=== PATIENT | female | born 1970 | race Caucasian/White ===

== ENCOUNTER 2017-08-27 23:43 | Emergency (ER) | payer BC, OTHER ==
[~2017-08-27] VITALS: Ht 172.7 cm; Wt 90.0 kg
[~2017-08-27 23:43] MED LIST: LORT5TAB PO
[2017-08-27 23:58] VITALS: BP 132/85; PULSE 126; RESP 18; TEMP 97.4; O2SAT 96
[2017-08-28] MEDS ORDERED: ALPR.5 PO (00:01)
--- NOTE | 2017-08-28 00:14 | PD ---
HPI Chief Complaint: Psychiatric Symptoms Time Seen by Provider: 00:05 Travel History International Travel<30 days: No Contact w/Intl Traveler<30days: No Traveled to known affect area: No History of Present Illness HPI 47 year white female who presents to emergency department by EMS for evaluation of overdose under Campos act. Patient has consumed a large amount of alcohol "a glasses of wine" and taking 12-15 0.5 mg Xanax. The patient here is alert but uncooperative. She does appear to be under the influence. Speech is slurred. She is handling her secretions. She is maintaining her sats. Vital signs are stable. The patient will not answer questions at this time. According the Campos act the patient was feeling depressed and suicidal. She had stated that she has not been able see her grandkids. No wounds visiting. PFSH Past Medical History Anxiety: Yes Diminished Hearing: No Gastrointestinal Disorders: Yes (ABD PAIN) Tetanus Vaccination: Unknown ?: Not Past Surgical History Gynecologic Surgery: Yes (BREAST AUGMENTATION/ UTERINE ABLATION) Other Surgery: Yes (NASAL SURGERY) Social History Alcohol Use: Yes (2 GLASSES OF WINE A WEEK) Tobacco Use: Yes (1/2 PPD) Substance Use: No Allergies-Medications (Allergen,Severity, Reaction): Coded Allergies: No Known Allergies (Verified Adverse Reaction, Unknown, 08/28/17) Reported Meds & Prescriptions Reported Meds & Active Scripts Active Reported Xanax (Alprazolam) 0.5 Mg Tab 0.5 Mg PO Q8H PRN Review of Systems ROS Limitations: Intoxication, Uncooperative Physical Exam Narrative GENERAL: Well-nourished, well-developed patient. Patient is uncooperative. Positive gag reflex. SKIN: Warm and dry. HEAD: Normocephalic and atraumatic. EYES: No scleral icterus. No injection or drainage. ENT: No nasal drainage noted. Mucous membranes pink. Airway patent. NECK: Supple, trachea midline. Moves head freely without obvious discomfort. CARDIOVASCULAR: Regular rate and rhythm without murmurs, gallops, or rubs. RESPIRATORY: Breath sounds equal bilaterally. No accessory muscle use. GASTROINTESTINAL: Abdomen soft, non-tender, nondistended. EXTREMITIES: No cyanosis or edema. BACK: Nontender without obvious deformity. No CVA tenderness. NEURO: Patient is alert and oriented. no sensorimotor deficits. Nonfocal. Slurred speech. PSYCH: No delusions. No auditory or visual hallucinations. Data Data Last Documented VS Vital Signs Date Time Temp Pulse Resp B/P (MAP) Pulse Ox O2 Delivery O2 Flow Rate FiO2 08/27/17 23:58 97.4 126 18 132/85 (101) 96 Orders Orders Complete Blood Count With Diff (08/28/17 00:05) Comprehensive Metabolic Panel (08/28/17 00:05) Iv Access Insert/Monitor (08/28/17 00:05) Ecg Monitoring (08/28/17 00:05) Psych Screen (08/28/17 00:05) Drug Screen, Random Urine (08/28/17 00:05) Alcohol (Ethanol) (08/28/17 00:05) Salicylates (Aspirin) (08/28/17 00:05) Tylenol (Acetaminophen) (08/28/17 00:05) Sodium Chlor 0.9% 1000 Ml Inj (Ns 1000 M (08/28/17 00:15) Restraints Violent (08/28/17 01:04) Haloperidol Inj (Haldol Inj) (08/28/17 01:45) Labs Laboratory Tests Test 08/28/17 00:10 08/28/17 00:30 White Blood Count 7.6 TH/MM3 Red Blood Count 4.47 MIL/MM3 Hemoglobin 14.4 GM/DL Hematocrit 42.9 % Mean Corpuscular Volume 95.8 FL Mean Corpuscular Hemoglobin 32.2 PG Mean Corpuscular Hemoglobin Concent 33.6 % Red Cell Distribution Width 13.3 % Platelet Count 292 TH/MM3 Mean Platelet Volume 8.3 FL Neutrophils (%) (Auto) 39.4 % Lymphocytes (%) (Auto) 48.1 % Monocytes (%) (Auto) 6.4 % Eosinophils (%) (Auto) 5.3 % Basophils (%) (Auto) 0.8 % Neutrophils # (Auto) 3.0 TH/MM3 Lymphocytes # (Auto) 3.6 TH/MM3 Monocytes # (Auto) 0.5 TH/MM3 Eosinophils # (Auto) 0.4 TH/MM3 Basophils # (Auto) 0.1 TH/MM3 CBC Comment DIFF FINAL Differential Comment Blood Urea Nitrogen 11 MG/DL Creatinine 0.87 MG/DL Random Glucose 108 MG/DL Total Protein 7.8 GM/DL Albumin 3.9 GM/DL Calcium Level 9.1 MG/DL Alkaline Phosphatase 79 U/L Aspartate Amino Transf (AST/SGOT) 21 U/L Alanine Aminotransferase (ALT/SGPT) 33 U/L Total Bilirubin 0.1 MG/DL Sodium Level 146 MEQ/L Potassium Level 4.4 MEQ/L Chloride Level 110 MEQ/L Carbon Dioxide Level 28.3 MEQ/L Anion Gap 8 MEQ/L Estimat Glomerular Filtration Rate 70 ML/MIN Salicylates Level 3.8 MG/DL Acetaminophen Level LESS THAN 2.0 MCG/ML Ethyl Alcohol Level 240 MG/DL Urine Opiates Screen NEG Urine Barbiturates Screen NEG Urine Amphetamines Screen NEG Urine Benzodiazepines Screen POS Urine Cocaine Screen NEG Urine Cannabinoids Screen NEG MDM Medical Decision Making Medical Screen Exam Complete: Yes Emergency Medical Condition: Yes Medical Record Reviewed: Yes Interpretation(s) Laboratory Tests Test 08/28/17 00:10 08/28/17 00:30 White Blood Count 7.6 TH/MM3 Red Blood Count 4.47 MIL/MM3 Hemoglobin 14.4 GM/DL Hematocrit 42.9 % Mean Corpuscular Volume 95.8 FL Mean Corpuscular Hemoglobin 32.2 PG Mean Corpuscular Hemoglobin Concent 33.6 % Red Cell Distribution Width 13.3 % Platelet Count 292 TH/MM3 Mean Platelet Volume 8.3 FL Neutrophils (%) (Auto) 39.4 % Lymphocytes (%) (Auto) 48.1 % Monocytes (%) (Auto) 6.4 % Eosinophils (%) (Auto) 5.3 % Basophils (%) (Auto) 0.8 % Neutrophils # (Auto) 3.0 TH/MM3 Lymphocytes # (Auto) 3.6 TH/MM3 Monocytes # (Auto) 0.5 TH/MM3 Eosinophils # (Auto) 0.4 TH/MM3 Basophils # (Auto) 0.1 TH/MM3 CBC Comment DIFF FINAL Differential Comment Blood Urea Nitrogen 11 MG/DL Creatinine 0.87 MG/DL Random Glucose 108 MG/DL Total Protein 7.8 GM/DL Albumin 3.9 GM/DL Calcium Level 9.1 MG/DL Alkaline Phosphatase 79 U/L Aspartate Amino Transf (AST/SGOT) 21 U/L Alanine Aminotransferase (ALT/SGPT) 33 U/L Total Bilirubin 0.1 MG/DL Sodium Level 146 MEQ/L Potassium Level 4.4 MEQ/L Chloride Level 110 MEQ/L Carbon Dioxide Level 28.3 MEQ/L Anion Gap 8 MEQ/L Estimat Glomerular Filtration Rate 70 ML/MIN Salicylates Level 3.8 MG/DL Acetaminophen Level LESS THAN 2.0 MCG/ML Ethyl Alcohol Level 240 MG/DL Urine Opiates Screen NEG Urine Barbiturates Screen NEG Urine Amphetamines Screen NEG Urine Benzodiazepines Screen POS Urine Cocaine Screen NEG Urine Cannabinoids Screen NEG Differential Diagnosis MDM: High Differential diagnoses: Schizophrenia, schizoaffective disorder, bipolar, anxiety, depression, adjustment reaction, mood disorder NOS, ODD, depressive disorder NOS, dementia, dementia with agitation, psychosis NOS, substance induced mood disorder, DMDD, Asperger syndrome, infection,electrolyte abnormality, malingering. Narrative Course Mental health screening discussed with the patient. Psychiatric screen ordered. IV access is obtained. Patient given a liter bolus normal saline. She is on a monitoring engineer and O2 sat monitor. She has intact gag reflex. She is maintaining her airway. She is alert but uncooperative. She rolls over onto her side. Routine laboratory tests have been ordered. She'll be monitored here in the ER. The patient has become uncooperative here in the ER. She has to be placed in bilateral restraints. She's treated with Haldol 5 mg IM This is medical clearance for psychiatric admission, alcohol intoxication, intentional drug overdose Diagnosis Primary Impression: Medical clearance for psychiatric admission Additional Impressions: Alcohol intoxication Qualified Codes: F10.920 - Alcohol use, unspecified with intoxication, uncomplicated Intentional overdose of drug in tablet form Condition: Stable Jovany Souza Aug 28, 2017 00:14
[2017-08-28] MEDS ORDERED: SODIUM CHLOR 0.9% 1000 ML INJ 1,000 ML IV ONE (00:15)
[2017-08-28 00:25] LABS: BASOPHIL # 0.1 TH/MM3 (0-0.2); BASOPHIL % 0.8 % (0.0-2.0); EOSINOPHIL # 0.4 TH/MM3 (0-0.4); EOSINOPHIL % 5.3 % (0.0-4.0); HEMATOCRIT 42.9 % (35.0-46.0); HEMO FLAGS DIFF FINAL; LYMPH % 48.1 % (9.0-44.0); LYMPHOCYTE # 3.6 TH/MM3 (1.0-4.8); MEAN CELL VOLUME 95.8 FL (80.0-100.0); MEAN CORPUSCULAR HEMOGLOBIN 32.2 PG (27.0-34.0); MEAN CORPUSCULAR HGB CONC 33.6 % (32.0-36.0); MONO % 6.4 % (0.0-8.0); NEUT % 39.4 % (16.0-70.0); PLATELET COUNT 292 TH/MM3 (150-450); RED BLOOD COUNT 4.47 MIL/MM3 (4.00-5.30); RED CELL DISTRIBUTION WIDTH 13.3 % (11.6-17.2); WHITE BLOOD COUNT 7.6 TH/MM3 (4.0-11.0)
[2017-08-28 00:49] LABS: ANION GAP 8 MEQ/L (5-15)
[2017-08-28 00:52] LABS: ALKALINE PHOSPHATASE 79 U/L (45-117); ALT (GPT) 33 U/L (10-53); AST (GOT) 21 U/L (15-37); BICARBONATE 28.3 MEQ/L (21.0-32.0); BLOOD UREA NITROGEN 11 MG/DL (7-18); CHLORIDE 110 MEQ/L (98-107); GLOMERULAR FILTRATION RATE 70 ML/MIN (>89); POTASSIUM 4.4 MEQ/L (3.5-5.1); SODIUM (NA) 146 MEQ/L (136-145); TOTAL BILIRUBIN ADULT 0.1 MG/DL (0.2-1.0)
[2017-08-28 00:55] LABS: ACETAMINOPHEN LESS THAN 2.0 MCG/ML (10.0-30.0); ALCOHOL 240 MG/DL (0-5)
[2017-08-28] MEDS ORDERED: HALOPERIDOL LACTATE 5 MG/ML AMP IM ONE (01:45)
[2017-08-28 06:14] VITALS: BP 125/71; PULSE 93; RESP 16; O2SAT 96
[2017-08-28 16:24] VITALS: BP 123/85; PULSE 95; RESP 17
[2017-08-28] MEDS ORDERED: AMBI10TA PO (17:23)
[2017-08-28] MEDS ORDERED: PARO25TA PO (17:26)
[2017-08-29 06:14] VITALS: BP 120/77; PULSE 62; RESP 16; O2SAT 99
--- NOTE | 2017-08-29 08:56 | EKG ---
Date Performed: 08/28/2017 Time Performed: 00:07:31 PTAGE: 47 years EKG: SINUS TACHYCARDIA LOW QRS VOLTAGE IN PRECORDIAL LEADS NONSPECIFIC T-WAVE ABNORMALITY Compar ed to prior tracing no significant change ABNORMAL RHYTHM ECG PREVIOUS TRACING : 01/25/2010 15.00 DOCTOR: Artis Briones Interpretating Date/Time 08/29/2017 08:55:47
[2017-08-29 11:14] VITALS: BP 147/98; PULSE 81; RESP 18; TEMP 98.1; O2SAT 98
--- NOTE | 2017-08-29 14:38 | PD ---
History of Present Illness Chief Complaint: Psychiatric Symptoms Time Seen by Provider: 14:30 Travel History International Travel<30 Days: No Contact w/Intl Traveler<30days: No Known affected area: No Legal Status Legal Status: Campos Act Campos Act Signed By: Radha Kumar Campos Act Comment: Signed by [employer] Officer Brittny Munoz #[id number]. History of Present Illness: 47-year-old female brought in under a Campos act for overdosing herself on Xanax while intoxicated. Patient reports getting drunk yesterday and doing the wrong thing. She is no longer intoxicated and regrets her ingestion of Xanax. She has been for 3 years and her has been apparently calling periodically since her arrival to check on her status. He wants to take her home and the patient wants to go home. She is no longer intoxicated and she is verbally meka for safety. She denies any suicidal or homicidal ideation , plan or intent. She has no psychotic symptoms and her cognition is intact. She is felt to be competent to make medical decisions. PFSH Past Medical History Anxiety: Yes Diminished Hearing: No Gastrointestinal Disorders: Yes (ABD PAIN) Tetanus Vaccination: Unknown ?: Not Past Surgical History Gynecologic Surgery: Yes (BREAST AUGMENTATION/ UTERINE ABLATION) Other Surgery: Yes (NASAL SURGERY) Psychiatric History Psychiatric History Hx Psychiatric Treatment: Patient denies any psychiatric tx hx. Stated that last year they did see a therapist for marital issues but is not anymore per pt. History of Inpatient Treatment: No Guns or firearms in home: No Social History Hx Alcohol Use: Yes (2 GLASSES OF WINE A WEEK) Hx Tobacco Use: Yes (1/2 PPD) Hx Substance Use: No (Pt denies abuse; Rx'd Ambien and Xanax per pt.) Substance Use Type: Alcohol, Nicotine/Cigarettes, Benzos (Valium,Xanax) Other Substances Used: Nicotine 1.5PPD; Social Drinker per pt. Hx of Substance Use Treatment: No Allergies-Medications (Allergen,Severity, Reaction): Coded Allergies: No Known Allergies (Verified Adverse Reaction, Unknown, 08/28/17) Reported Meds & Prescriptions Reported Meds & Active Scripts Active Reported Paroxetine ER (Paroxetine HCl) 25 Mg Tab 25 Mg PO DAILY Ambien (Zolpidem Tartrate) 10 Mg Tab 10 Mg PO HS PRN Xanax (Alprazolam) 0.5 Mg Tab 0.5 Mg PO Q8H PRN Review of Systems Except as stated in HPI: all other systems reviewed are Neg Mental Status Examination Appearance: Appropriate Consciousness: Alert Orientation: x4 Motor Activity: Normal gait Speech: Unremarkable Language: Adequate Fund of Knowledge: Adequate Attention and Concentration: Adequate Memory: Unremarkable Mood: Appropriate Affect: Appropriate Thought Process & Associations: Intact Thought Content: Appropriate Hallucination Type: None Delusion Type: None Suicidal Ideation: No Suicidal Plan: No Suicidal Intention: No Homicidal Ideation: No Homicidal Plan: No Homicidal Intention: No Insight: Adequate Judgment: Adequate MDM Medical Decision Making Medical Record Reviewed: Yes Assessment/Plan Patient interviewed at bedside, medical record reviewed and case discussed with nurse, Vaughn. Patient is no longer intoxicated and she is calm, pleasant and cooperative. She denies any suicidal or homicidal ideation, plan or intent. She is verbally meka for safety and she is competent to do so. She reports she is willing to seek treatment on an outpatient basis and least restrictive alternative applies. Orders Orders Diet Regular Basic (08/29/17 Breakfast) Diet Regular Basic (08/29/17 Lunch) Results Vital Signs Date Time Temp Pulse Resp B/P (MAP) Pulse Ox O2 Delivery O2 Flow Rate FiO2 08/29/17 11:14 98.1 81 18 147/98 (114) 98 Room Air 08/29/17 06:14 62 16 120/77 (91) 99 Room Air 08/28/17 21:56 95 17 08/28/17 16:24 95 17 123/85 (98) Diagnosis Primary Impression: Alcohol abuse Condition: Stable Ceasar Arambula MD Aug 29, 2017 14:38
--- NOTE | 2017-08-29 15:07 | PD ---
Physical Exam Date Seen by Provider: Aug 29, 2017 Time Seen by Provider: 15:06 Narrative Patient has been cleared by psychiatry. She has no suicidal or homicidal ideations and feels safe to go home. Data Data Last Documented VS Vital Signs Date Time Temp Pulse Resp B/P (MAP) Pulse Ox O2 Delivery O2 Flow Rate FiO2 08/29/17 11:14 98.1 81 18 147/98 (114) 98 Room Air Orders Orders Complete Blood Count With Diff (08/28/17 00:05) Comprehensive Metabolic Panel (08/28/17 00:05) Iv Access Insert/Monitor (08/28/17 00:05) Ecg Monitoring (08/28/17 00:05) Psych Screen (08/28/17 00:05) Drug Screen, Random Urine (08/28/17 00:05) Alcohol (Ethanol) (08/28/17 00:05) Salicylates (Aspirin) (08/28/17 00:05) Tylenol (Acetaminophen) (08/28/17 00:05) Sodium Chlor 0.9% 1000 Ml Inj (Ns 1000 M (08/28/17 00:15) Restraints Violent (08/28/17 01:04) Haloperidol Inj (Haldol Inj) (08/28/17 01:45) Electrocardiogram (08/28/17 00:07) Diet Regular Basic (08/28/17 Lunch) Diet Regular Basic (08/28/17 Dinner) Diet Regular Basic (08/29/17 Breakfast) Diet Regular Basic (08/29/17 Lunch) Labs Laboratory Tests Test 08/28/17 00:10 08/28/17 00:30 White Blood Count 7.6 TH/MM3 Red Blood Count 4.47 MIL/MM3 Hemoglobin 14.4 GM/DL Hematocrit 42.9 % Mean Corpuscular Volume 95.8 FL Mean Corpuscular Hemoglobin 32.2 PG Mean Corpuscular Hemoglobin Concent 33.6 % Red Cell Distribution Width 13.3 % Platelet Count 292 TH/MM3 Mean Platelet Volume 8.3 FL Neutrophils (%) (Auto) 39.4 % Lymphocytes (%) (Auto) 48.1 % Monocytes (%) (Auto) 6.4 % Eosinophils (%) (Auto) 5.3 % Basophils (%) (Auto) 0.8 % Neutrophils # (Auto) 3.0 TH/MM3 Lymphocytes # (Auto) 3.6 TH/MM3 Monocytes # (Auto) 0.5 TH/MM3 Eosinophils # (Auto) 0.4 TH/MM3 Basophils # (Auto) 0.1 TH/MM3 CBC Comment DIFF FINAL Differential Comment Blood Urea Nitrogen 11 MG/DL Creatinine 0.87 MG/DL Random Glucose 108 MG/DL Total Protein 7.8 GM/DL Albumin 3.9 GM/DL Calcium Level 9.1 MG/DL Alkaline Phosphatase 79 U/L Aspartate Amino Transf (AST/SGOT) 21 U/L Alanine Aminotransferase (ALT/SGPT) 33 U/L Total Bilirubin 0.1 MG/DL Sodium Level 146 MEQ/L Potassium Level 4.4 MEQ/L Chloride Level 110 MEQ/L Carbon Dioxide Level 28.3 MEQ/L Anion Gap 8 MEQ/L Estimat Glomerular Filtration Rate 70 ML/MIN Salicylates Level 3.8 MG/DL Acetaminophen Level LESS THAN 2.0 MCG/ML Ethyl Alcohol Level 240 MG/DL Urine Opiates Screen NEG Urine Barbiturates Screen NEG Urine Amphetamines Screen NEG Urine Benzodiazepines Screen POS Urine Cocaine Screen NEG Urine Cannabinoids Screen NEG MDM Supervised Visit with DOROTHEA: No Diagnosis Primary Impression: Alcohol abuse Patient Instructions: General Instructions, Abuse of Alcohol (ED), Suicide Prevention for Adults (ED) Departure Forms: Tests/Procedures Disposition: 01 DISCHARGE HOME Condition: Stable Sowmya Ashton Aug 29, 2017 15:07
[2017-08-29 15:19] VITALS: BP 147/98; TEMP 98.1
== END 2017-08-29 15:24 | disposition home or self-care (01) ==
LOC: NEPD 23:43 → NEPJ 08-29 15:24
DX: F10.10 Alcohol abuse, uncomplicated (principal); R00.0 Tachycardia, unspecified; R94.31 Abnormal electrocardiogram [ECG] [EKG]; F41.9 Anxiety disorder, unspecified; F17.200 Nicotine dependence, unspecified, uncomplicated; Z79.899 Other long term (current) drug therapy
CPT/HCPCS: 80053; 80307; 85025; 93005; 96360; 96372; 99285; J1630; J7030